=== PATIENT | female | born 1975 | race African-American/Black ===

== ENCOUNTER 2021-01-21 23:13 | Inpatient (IN) ==
[2021-01-21 23:43] LABS: Basophils % 0.1 % (0.0-0.8); Hematocrit 34.5 VOL% (35.7-47.0); Hemoglobin 10.3 GM/DL (12.0-16.0); Immature Granulocytes % 0.4 %; Immature Granulocytes Absolute 0.03 #; Lymphocytes # 0.6 10*3/uL (1.4-4.0); Lymphocytes % 8.8 % (21.3-54.2); Mean Corpuscular HGB Conc 29.9 GM/DL (32-36); Mean Corpuscular Volume 75.8 FL (87-102); Mean Platelet Volume 9.5 FL (9.6-12.0); Monocytes % 3.9 % (1.7-12.7); Neutrophils % 86.8 % (38.7-73.9); Platelet Count 279 T/CUMM (130-400); Red Blood Count 4.55 MC/CUMM (3.8-5.5); Red Cell Distribution Width 16.4 % (9.3-17.3)
[2021-01-21 23:55] LABS: INR 1.1; Partial Thromboplastin Time 28.7 SECS (23.9-33.8)
[2021-01-22 00:03] LABS: Albumin 2.7 G/DL (3.4-5.0); Bilirubin,Total 0.5 MG/DL (0.20-1.00); Calcium 8.5 MG/DL (8.5-10.1); Lymphocytes 12 % (20-55); Platelet Estimate Normal; Potassium 4.4 MMOL/L (3.5-5.1); Segmented Neutrophils 86 % (50-85); Total Cells Counted 100; Total Protein 6.9 G/DL (6.4-8.2)
[2021-01-22] MEDS ORDERED: PIPERACILLIN/TAZOBACTAM 3,375 MG in SODIUM CHLORIDE 0.9% 100 ML IV STA (00:15)
[2021-01-22] MEDS ORDERED: SODIUM CHLORIDE 0.9% 500 ML IV STA (00:15)
[2021-01-22] MEDS ORDERED: ONDANSETRON 4 MG/2 ML VIAL IV STA (00:15)
[2021-01-22] MEDS ORDERED: DEXAMETHASONE 10 MG/1 ML VIAL IV ONE (00:15)
[2021-01-22 03:12] VITALS: BP 120/71
[2021-01-22] MEDS ORDERED: MORPHINE 2 MG/1 ML SYRINGE IV PRN (03:29)
[2021-01-22] MEDS ORDERED: ONDANSETRON 4 MG/2 ML VIAL IV PRN (03:29)
[2021-01-22] MEDS ORDERED: GLUCAGON 1 MG VIAL IM PRN (03:29)
[2021-01-22] MEDS ORDERED: SODIUM CHLORIDE 0.9% 1,000 ML IV SCH (03:29)
[2021-01-22] MEDS ORDERED: DEXTROSE 50% 25 GM/50 ML VIAL IV PRN (03:29)
[2021-01-22] MEDS ORDERED: methylPREDNISolone SOD SUC 40 MG/1 ML VIAL IV SCH (03:29)
[2021-01-22] MEDS ORDERED: AZITHROMYCIN INJ 500 MG in SODIUM CHLORIDE 0.9% 250 ML IV SCH (03:29)
[2021-01-22 04:24] LABS: Allen Test Positive; Pt O2 Delivery Device Venturi Mask
[2021-01-22 04:27] LABS: ABG Base Excess 2.1 MMOL/L (-2.5-2.5); ABG HCO3 26.4 MMOL/L (20-26); ABG Oxygen Saturation 85.9 % (95-100); ABG PH 7.437 (7.35-7.45); ABG PO2 53.4 MM HG (80-95); ABG TCO2 27.6 MMOL/L (23-27)
[2021-01-22 05:42] LABS: Basophils % 0.2 % (0.0-0.8); Hematocrit 33.2 VOL% (35.7-47.0); Hemoglobin 9.9 GM/DL (12.0-16.0); Immature Granulocytes % 0.5 %; Immature Granulocytes Absolute 0.03 #; Lymphocytes # 0.8 10*3/uL (1.4-4.0); Lymphocytes % 14.2 % (21.3-54.2); Mean Corpuscular HGB Conc 29.8 GM/DL (32-36); Mean Platelet Volume 9.5 FL (9.6-12.0); Monocytes % 2.9 % (1.7-12.7); Neutrophils % 82.2 % (38.7-73.9); Platelet Count 258 T/CUMM (130-400); Red Blood Count 4.37 MC/CUMM (3.8-5.5); Red Cell Distribution Width 16.5 % (9.3-17.3); White Blood Count 5.8 T/CUMM (4-12)
[2021-01-22 06:19] LABS: Hypochromasia Slight; Lymphocytes 17 % (20-55); Microcytosis Slight; Platelet Estimate Normal; Segmented Neutrophils 81 % (50-85); Total Cells Counted 100
[2021-01-22 07:13] LABS: Albumin 2.4 G/DL (3.4-5.0); Bilirubin,Total 0.6 MG/DL (0.20-1.00); Calcium 8.7 MG/DL (8.5-10.1); Osmolality,Calculated 273.1 MOS/KG (273-304); Potassium 4.8 MMOL/L (3.5-5.1); Total Protein 7.4 G/DL (6.4-8.2)
[2021-01-22] MEDS ORDERED: FUROSEMIDE 40 MG/4 ML VIAL IV ONE (07:31)
[2021-01-22] MEDS: DEXAMETHASONE 4 MG/1 ML VIAL IV SCH (08:37)
[2021-01-22] MEDS: PANTOPRAZOLE 40 MG TABLET PO SCH (08:38)
[2021-01-22] MEDS: FAMOTIDINE 20 MG TABLET PO SCH ×2 (08:38→21:14)
[2021-01-22] MEDS: ASCORBIC ACID 500 MG TABLET PO SCH ×2 (08:38→21:14)
[2021-01-22] MEDS: ENOXAPARIN 40 MG/0.4 ML SYRINGE SUBCUT SCH ×2 (08:38→21:14)
[2021-01-22] MEDS: ZINC GLUCONATE 50 MG TABLET PO SCH (08:39)
[2021-01-22] MEDS: CETIRIZINE 10 MG TABLET PO SCH (08:39)
[2021-01-22] MEDS: CHOLECALCIFEROL 1,000 UNIT TABLET PO SCH (08:39)
[2021-01-22] MEDS ORDERED: REMDESIVIR 200 MG in SODIUM CHLORIDE 0.9% 210 ML IV ONE ×2 (09:00→12:30)
[2021-01-22] MEDS ORDERED: ENOXAPARIN 40 MG/0.4 ML SYRINGE SUBCUT SCH (09:00)
[2021-01-22 10:53] LABS: Bacteria,Urine Occasional /HPF (Few); Barbiturates Screen,Urine Negative (Negative); Benzodiazepines Screen,Urine Negative (Negative); Bilirubin,Urine Negative (Negative); Blood, Urine Negative (Negative); Cannabinoid Screen,Urine Negative (Negative); Glucose,Urine (UA) Negative (Negative); Hyaline Casts,Urine 1 /LPF (0-3); Ketones,Urine Negative (Negative); Mucus,Urine Occasional /LPF (Occasional); Nitrite,Urine Negative (Negative); Opiate Screen,Urine Negative (Negative); Phencyclidine Screen,Urine Negative (Negative); Protein,Urine 100 MG/DL; RBC,Urine <1 /HPF (0-4); Squamous Epithelial Cell,Urine Occasional /HPF (0-10); Urine Appearance CLEAR (Clear); Urine Color Yellow (Yellow); Urine Specific Gravity 1.028 (1.001-1.035); Urine Urobilinogen < 2.0 EU/DL (0.2-1.0)
[2021-01-22] MEDS ORDERED: ENOXAPARIN 100 MG/ML SYRINGE SUBCUT SCH (11:00)
[2021-01-22] MEDS: ALBUTEROL 2 MG TABLET PO SCH (21:14)
[2021-01-23] MEDS ORDERED: cefTRIAXone 1,000 MG in SODIUM CHLORIDE 0.9% 100 ML IV SCH (02:30)
[2021-01-23] MEDS: ALBUTEROL 2 MG TABLET PO SCH ×3 (05:10→21:15)
[2021-01-23] MEDS: FAMOTIDINE 20 MG TABLET PO SCH ×2 (08:15→21:14)
[2021-01-23] MEDS: ASCORBIC ACID 500 MG TABLET PO SCH ×2 (08:15→21:14)
[2021-01-23] MEDS: CETIRIZINE 10 MG TABLET PO SCH (08:15)
[2021-01-23] MEDS: CHOLECALCIFEROL 1,000 UNIT TABLET PO SCH (08:15)
[2021-01-23] MEDS: ENOXAPARIN 40 MG/0.4 ML SYRINGE SUBCUT SCH ×2 (08:15→21:14)
[2021-01-23] MEDS: PANTOPRAZOLE 40 MG TABLET PO SCH (08:15)
[2021-01-23] MEDS: ZINC GLUCONATE 50 MG TABLET PO SCH (08:16)
[2021-01-23] MEDS: DEXAMETHASONE 4 MG/1 ML VIAL IV SCH (08:16)
[2021-01-23] MEDS: AZITHROMYCIN 250 MG TABLET PO SCH (08:16)
[2021-01-23 08:34] LABS: Basophils # 0.1 10*3/uL (0.0-0.2); Basophils % 0.6 % (0.0-0.8); Hematocrit 35.5 VOL% (35.7-47.0); Hemoglobin 10.8 GM/DL (12.0-16.0); Immature Granulocytes % 0.9 %; Immature Granulocytes Absolute 0.08 #; Lymphocytes # 1.6 10*3/uL (1.4-4.0); Lymphocytes % 18.6 % (21.3-54.2); Mean Corpuscular HGB Conc 30.4 GM/DL (32-36); Mean Corpuscular Volume 75.9 FL (87-102); Mean Platelet Volume 9.6 FL (9.6-12.0); Monocytes % 5.6 % (1.7-12.7); Neutrophils % 74.3 % (38.7-73.9); Platelet Count 370 T/CUMM (130-400); Red Blood Count 4.68 MC/CUMM (3.8-5.5); Red Cell Distribution Width 16.3 % (9.3-17.3); White Blood Count 8.7 T/CUMM (4-12)
[2021-01-23 08:48] LABS: Lymphocytes 17 % (20-55); Segmented Neutrophils 80 % (50-85); Total Cells Counted 100
[2021-01-23 08:49] LABS: Hypochromasia 1+; Microcytosis 1+; Ovalocytes Slight; Platelet Estimate Normal
[2021-01-23 09:02] LABS: Calcium 8.8 MG/DL (8.5-10.1); Osmolality,Calculated 282.5 MOS/KG (273-304); Potassium 3.9 MMOL/L (3.5-5.1)
[2021-01-23] MEDS: REMDESIVIR 100 MG in SODIUM CHLORIDE 0.9% 100 ML IV SCH (09:40)
[2021-01-23] MEDS: ALPRAZolam 0.25 MG TABLET PO PRN ×2 (12:54→21:15)
[2021-01-23] MEDS: INSULIN LISPRO 100 UNIT/ML SUBCUT SCH (21:14)
[2021-01-24 03:45] LABS: ABG HCO3 25.8 MMOL/L (20-26); ABG Oxygen Saturation 94.7 % (95-100); ABG PCO2 37.2 MM HG (35-48); ABG PH 7.459 (7.35-7.45); ABG PO2 75.4 MM HG (80-95); ABG TCO2 26.9 MMOL/L (23-27)
[2021-01-24 05:08] LABS: Basophils % 0.3 % (0.0-0.8); Hematocrit 33.8 VOL% (35.7-47.0); Hemoglobin 10.1 GM/DL (12.0-16.0); Immature Granulocytes % 1.9 %; Immature Granulocytes Absolute 0.13 #; Lymphocytes # 1.6 10*3/uL (1.4-4.0); Lymphocytes % 24.5 % (21.3-54.2); Mean Corpuscular HGB Conc 29.9 GM/DL (32-36); Mean Corpuscular Volume 76.3 FL (87-102); Mean Platelet Volume 9.8 FL (9.6-12.0); Monocytes % 7.8 % (1.7-12.7); NRBC # 0.03 10*3/uL; Neutrophils % 65.5 % (38.7-73.9); Platelet Count 372 T/CUMM (130-400); Red Blood Count 4.43 MC/CUMM (3.8-5.5); Red Cell Distribution Width 16.3 % (9.3-17.3); White Blood Count 6.7 T/CUMM (4-12)
[2021-01-24 05:24] LABS: Alanine Aminotransferase 54 U/L (13-56); Albumin 2.3 G/DL (3.4-5.0); Alkaline Phosphatase 53 U/L (45-117); Aspartate Amino Transferase 16 U/L (0-37); Bilirubin,Total < 0.39 MG/DL (0.20-1.00); Blood Urea Nitrogen 14 MG/DL (7-18); Calcium 8.8 MG/DL (8.5-10.1); Carbon Dioxide 28 MMOL/L (21-32); Estimated Glom Filtration Rate 120 ML/MIN; Ferritin 214.6 ng/ml (8-252); Glucose 137 MG/DL (74-106); Osmolality,Calculated 279.5 MOS/KG (273-304); Potassium 3.7 MMOL/L (3.5-5.1); Sodium 139 MMOL/L (136-145); Total Protein 6.8 G/DL (6.4-8.2)
[2021-01-24 05:43] LABS: Lymphocytes 25 % (20-55); Nucleated Red Blood Cells 1 (0-5); Platelet Estimate Normal; Segmented Neutrophils 66 % (50-85); Total Cells Counted 100
[2021-01-24 05:44] LABS: Microcytosis 1+
[2021-01-24] MEDS: ALBUTEROL 2 MG TABLET PO SCH ×3 (06:02→21:03)
[2021-01-24] MEDS: CHOLECALCIFEROL 1,000 UNIT TABLET PO SCH (08:12)
[2021-01-24] MEDS: CETIRIZINE 10 MG TABLET PO SCH (08:12)
[2021-01-24] MEDS: ZINC GLUCONATE 50 MG TABLET PO SCH (08:12)
[2021-01-24] MEDS: FAMOTIDINE 20 MG TABLET PO SCH ×2 (08:12→20:27)
[2021-01-24] MEDS: DEXAMETHASONE 4 MG/1 ML VIAL IV SCH (08:12)
[2021-01-24] MEDS: AZITHROMYCIN 250 MG TABLET PO SCH (08:13)
[2021-01-24] MEDS: PANTOPRAZOLE 40 MG TABLET PO SCH (08:13)
[2021-01-24] MEDS: ENOXAPARIN 40 MG/0.4 ML SYRINGE SUBCUT SCH ×2 (08:13→20:27)
[2021-01-24] MEDS: ASCORBIC ACID 500 MG TABLET PO SCH ×2 (08:13→20:27)
[2021-01-24] MEDS: INSULIN LISPRO 100 UNIT/ML SUBCUT SCH ×4 (08:43→20:27)
[2021-01-24] MEDS: REMDESIVIR 100 MG in SODIUM CHLORIDE 0.9% 100 ML IV SCH (09:00)
[2021-01-24] MEDS ORDERED: POLYETHYLENE GLYCOL POWDER 17 GM PACK PO PRN (10:08)
[2021-01-24] MEDS: DOCUSATE SODIUM 100 MG CAPSULE PO SCH ×2 (14:09→21:03)
[2021-01-24] MEDS: ALPRAZolam 0.25 MG TABLET PO PRN (20:28)
[2021-01-24] MEDS: MELATONIN 3 MG TABLET PO PRN (20:28)
[2021-01-25] MEDS: ALBUTEROL 2 MG TABLET PO SCH ×3 (06:01→21:22)
[2021-01-25] MEDS: INSULIN LISPRO 100 UNIT/ML SUBCUT SCH ×4 (08:40→21:21)
[2021-01-25] MEDS: CETIRIZINE 10 MG TABLET PO SCH (08:45)
[2021-01-25] MEDS: ZINC GLUCONATE 50 MG TABLET PO SCH (08:45)
[2021-01-25] MEDS: DEXAMETHASONE 4 MG/1 ML VIAL IV SCH (08:45)
[2021-01-25] MEDS: CHOLECALCIFEROL 1,000 UNIT TABLET PO SCH (08:45)
[2021-01-25] MEDS: FAMOTIDINE 20 MG TABLET PO SCH ×2 (08:45→21:22)
[2021-01-25] MEDS: DOCUSATE SODIUM 100 MG CAPSULE PO SCH ×2 (08:45→21:21)
[2021-01-25] MEDS: ASCORBIC ACID 500 MG TABLET PO SCH ×2 (08:45→21:22)
[2021-01-25] MEDS: ENOXAPARIN 40 MG/0.4 ML SYRINGE SUBCUT SCH ×2 (08:45→21:22)
[2021-01-25] MEDS: AZITHROMYCIN 250 MG TABLET PO SCH (08:45)
[2021-01-25] MEDS: PANTOPRAZOLE 40 MG TABLET PO SCH (08:45)
[2021-01-25 09:06] LABS: Calcium 9.3 MG/DL (8.5-10.1); Osmolality,Calculated 272.8 MOS/KG (273-304); Potassium 3.7 MMOL/L (3.5-5.1)
[2021-01-25 09:09] LABS: Basophils % 0.4 % (0.0-0.8); Eosinophils % 0.4 % (0.00-10.9); Hematocrit 38.4 VOL% (35.7-47.0); Hemoglobin 11.8 GM/DL (12.0-16.0); Immature Granulocytes % 4.4 %; Immature Granulocytes Absolute 0.32 #; Lymphocytes # 2.1 10*3/uL (1.4-4.0); Lymphocytes % 29.7 % (21.3-54.2); Mean Corpuscular HGB Conc 30.7 GM/DL (32-36); Mean Corpuscular Volume 74.7 FL (87-102); Mean Platelet Volume 9.2 FL (9.6-12.0); Monocytes % 7.6 % (1.7-12.7); NRBC # 0.04 10*3/uL; Neutrophils % 57.5 % (38.7-73.9); Platelet Count 422 T/CUMM (130-400); Red Blood Count 5.14 MC/CUMM (3.8-5.5); Red Cell Distribution Width 17.1 % (9.3-17.3); White Blood Count 7.2 T/CUMM (4-12)
[2021-01-25 09:10] LABS: Ferritin 156.7 ng/ml (8-252)
[2021-01-25 09:15] LABS: Lymphocytes 25 % (20-55); Nucleated Red Blood Cells 1 (0-5); Platelet Estimate Adequate; Segmented Neutrophils 71 % (50-85); Total Cells Counted 100
[2021-01-25 09:16] LABS: Hypochromasia Slight; Microcytosis Slight
[2021-01-25] MEDS: REMDESIVIR 100 MG in SODIUM CHLORIDE 0.9% 100 ML IV SCH (10:00)
[2021-01-25] MEDS: ARIPiprazole 5 MG TABLET PO SCH (21:21)
[2021-01-25] MEDS: ROSUVASTATIN 20 MG TABLET PO SCH (21:21)
[2021-01-25] MEDS: FERROUS SULFATE 325 MG TABLET PO SCH (21:21)
[2021-01-25] MEDS: MELATONIN 3 MG TABLET PO PRN (21:22)
[2021-01-25] MEDS: FLUoxetine 20 MG CAPSULE PO SCH (21:22)
[2021-01-25] MEDS: ALPRAZolam 0.25 MG TABLET PO PRN (21:22)
[2021-01-26] MEDS: ALBUTEROL 2 MG TABLET PO SCH ×3 (05:55→21:05)
[2021-01-26 05:57] LABS: Basophils % 0.1 % (0.0-0.8); Eosinophils # 0.1 10*3/uL (0.0-0.87); Eosinophils % 0.9 % (0.00-10.9); Hematocrit 36.6 VOL% (35.7-47.0); Immature Granulocytes % 6.4 %; Immature Granulocytes Absolute 0.59 #; Lymphocytes # 2.6 10*3/uL (1.4-4.0); Lymphocytes % 27.8 % (21.3-54.2); Mean Corpuscular HGB Conc 30.1 GM/DL (32-36); Mean Corpuscular Volume 76.3 FL (87-102); Mean Platelet Volume 9.6 FL (9.6-12.0); Monocytes % 6.6 % (1.7-12.7); NRBC # 0.08 10*3/uL; Neutrophils % 58.2 % (38.7-73.9); Platelet Count 366 T/CUMM (130-400); Red Cell Distribution Width 17.3 % (9.3-17.3); White Blood Count 9.3 T/CUMM (4-12)
[2021-01-26 06:17] LABS: Calcium 8.7 MG/DL (8.5-10.1); Osmolality,Calculated 278.4 MOS/KG (273-304); Potassium 3.8 MMOL/L (3.5-5.1)
[2021-01-26 06:26] LABS: Eosinophils 2 % (0-10); Lymphocytes 21 % (20-55); Microcytosis Slight; Nucleated Red Blood Cells 1 (0-5); Platelet Estimate Normal; Segmented Neutrophils 69 % (50-85); Total Cells Counted 100
[2021-01-26] MEDS: DEXAMETHASONE 4 MG/1 ML VIAL IV SCH (08:15)
[2021-01-26] MEDS: INSULIN LISPRO 100 UNIT/ML SUBCUT SCH ×4 (08:15→20:18)
[2021-01-26] MEDS: ASCORBIC ACID 500 MG TABLET PO SCH ×2 (08:16→20:18)
[2021-01-26] MEDS: FERROUS SULFATE 325 MG TABLET PO SCH ×2 (08:16→20:18)
[2021-01-26] MEDS: CETIRIZINE 10 MG TABLET PO SCH (08:16)
[2021-01-26] MEDS: DOCUSATE SODIUM 100 MG CAPSULE PO SCH ×2 (08:16→20:18)
[2021-01-26] MEDS: FAMOTIDINE 20 MG TABLET PO SCH ×2 (08:16→20:18)
[2021-01-26] MEDS: ZINC GLUCONATE 50 MG TABLET PO SCH (08:16)
[2021-01-26] MEDS: CHOLECALCIFEROL 1,000 UNIT TABLET PO SCH (08:16)
[2021-01-26] MEDS: AZITHROMYCIN 250 MG TABLET PO SCH (08:16)
[2021-01-26] MEDS: ENOXAPARIN 40 MG/0.4 ML SYRINGE SUBCUT SCH ×2 (08:16→20:18)
[2021-01-26] MEDS ORDERED: ZINC GLUCONATE 50 MG TABLET PO SCH (09:00)
[2021-01-26] MEDS ORDERED: CETIRIZINE 10 MG TABLET PO SCH (09:00)
[2021-01-26] MEDS: REMDESIVIR 100 MG in SODIUM CHLORIDE 0.9% 100 ML IV SCH (09:46)
[2021-01-26] MEDS: FLUoxetine 20 MG CAPSULE PO SCH (20:18)
[2021-01-26] MEDS: ARIPiprazole 5 MG TABLET PO SCH (20:18)
[2021-01-26] MEDS: ROSUVASTATIN 20 MG TABLET PO SCH (20:18)
[2021-01-27] MEDS: ALBUTEROL 2 MG TABLET PO SCH (06:05)
[2021-01-27 06:45] LABS: Basophils % 0.3 % (0.0-0.8); Eosinophils # 0.1 10*3/uL (0.0-0.87); Eosinophils % 1.8 % (0.00-10.9); Hematocrit 38.2 VOL% (35.7-47.0); Hemoglobin 11.7 GM/DL (12.0-16.0); Immature Granulocytes % 7.5 %; Immature Granulocytes Absolute 0.55 #; Lymphocytes # 1.7 10*3/uL (1.4-4.0); Lymphocytes % 22.8 % (21.3-54.2); Mean Corpuscular HGB Conc 30.6 GM/DL (32-36); Mean Corpuscular Volume 75.5 FL (87-102); Mean Platelet Volume 9.9 FL (9.6-12.0); Monocytes % 6.1 % (1.7-12.7); Neutrophils % 61.5 % (38.7-73.9); Platelet Count 378 T/CUMM (130-400); Red Blood Count 5.06 MC/CUMM (3.8-5.5); Red Cell Distribution Width 18.2 % (9.3-17.3); White Blood Count 7.3 T/CUMM (4-12)
[2021-01-27 07:07] LABS: Calcium 8.9 MG/DL (8.5-10.1); Osmolality,Calculated 275.7 MOS/KG (273-304); Potassium 4.1 MMOL/L (3.5-5.1)
[2021-01-27 07:10] LABS: Band Neutrophils 3 % (0-10); Eosinophils 1 % (0-10); Hypochromasia 1+; Lymphocytes 24 % (20-55); Microcytosis 1+; Ovalocytes Slight; Platelet Estimate Adequate; Segmented Neutrophils 66 % (50-85); Total Cells Counted 100
[2021-01-27] MEDS: INSULIN LISPRO 100 UNIT/ML SUBCUT SCH (07:24)
[2021-01-27] MEDS: CETIRIZINE 10 MG TABLET PO SCH (08:16)
[2021-01-27] MEDS: CHOLECALCIFEROL 1,000 UNIT TABLET PO SCH (08:16)
[2021-01-27] MEDS: ZINC GLUCONATE 50 MG TABLET PO SCH (08:16)
[2021-01-27] MEDS: DOCUSATE SODIUM 100 MG CAPSULE PO SCH (08:16)
[2021-01-27] MEDS: DEXAMETHASONE 4 MG/1 ML VIAL IV SCH (08:16)
[2021-01-27] MEDS: FAMOTIDINE 20 MG TABLET PO SCH (08:16)
[2021-01-27] MEDS: ENOXAPARIN 40 MG/0.4 ML SYRINGE SUBCUT SCH (08:17)
[2021-01-27] MEDS: FERROUS SULFATE 325 MG TABLET PO SCH (08:18)
[2021-01-27] MEDS: ASCORBIC ACID 500 MG TABLET PO SCH (08:18)
== END 2021-01-27 10:30 | disposition home or self-care (01) | DRG 177 ==
LOC: EDBD → EDUNIT# → N.ED 23:13 → SUATTDRO 01-22 01:24 → N.EDINP 01-22 01:24 → N.CC 01-22 03:26
PROVIDERS: ADMIT Internal Medicine; ATTEND Family Medicine